=== PATIENT | female | born 1995 | race African-American/Black ===

== ENCOUNTER 2017-04-03 07:42 | Emergency (ER) | payer SELFPAY ==
[2017-04-03 07:48] VITALS: BP 134/97; BMI 31.8
[2017-04-03 08:20] LABS: BILIRUBIN,URINE NEGATIVE (NEGATIVE); BLOOD/HEMOGLOBIN,URINE 1+ (NEGATIVE); GLUCOSE, URINE NEGATIVE (NEGATIVE); KETONES,URINE NEGATIVE (NEGATIVE); LEUKOCYTE ESTERASE ,URINE 1+ (NEGATIVE); NITRITES,URINE NEGATIVE (NEGATIVE); PH,URINE 6.5 (5.0 - 8.0); PROTEIN,URINE 1+ (NEGATIVE); UROBILINOGEN,URINE NORMAL (NORMAL)
--- NOTE | 2017-04-03 08:24 | DR.GENAD ---
HPI - PCP Primary Care Physician: nfd - Complaint/Symptoms Chief Complaint Doctors Comments: Patient admits to stomach pain; sharp in character,severe, 10/10 aggravated by food. She admits to urinary frequency but negative dysuria. She denies vomiting, diarrhea or fever. Chief Complaint:: pt states" my stomach has been hurting me so bad for over a week sick on my stomach" - Source History Provided: Patient - Mode of Arrival Mode of Arrival: Ambulatory - Timing Onset of Chief Complaint: 03/26/17 PMH - PMH Past Medical History: No Past Surgical History: No - Family History History of Family Medical Conditions: No - Social History Type of Tobacco Use: Cigarettes Does any household member use tobacco: Yes Alcohol Use: None Do you use any recreational Drugs:: No Lives With: Family Lives Where: Home - infectious screening In the last 2 months have you had wt loss of >10#?: NO Have you had fever, night sweats or hemotysis?: No Have you traveled outside the country in the last 6 months?: No Isolation: Standard ROS - Review of Systems Eyes: No Symptoms Reported ENTM: No Symptoms Reported Respiratoy: No Symptoms Reported Cardiovascular: No Symptoms Reported Gastrointestinal/Abdominal: See HPI, Abdominal Pain Genitourinary: Frequency Neurological: No Symptoms Reported Musculoskeletal: No Symptoms Reported Integumentary: No Symptoms Reported Hematologic/Lymphatic: No Symptoms Reported Endocrine: No Symptoms Reported Psychiatric: No Symptoms Reported All Other Systems: Reviewed and Negative PE - Vital Signs Vitals: Temperature 97 F Pulse Rate 87 Respiratory Rate 18 Blood Pressure [Right Arm] 127/75 Blood Pressure [Left Arm] 111/72 Blood Pressure 134/97 O2 Sat by Pulse Oximetry 100 - General General Appearance: Alert, In No Apparent Distress - Head Head Exam: Normal Inspection, Atraumatic - Eyes Eye exam: Normal Appearance, PERRL, EOMI - ENT ENT Exam: Normal Exam External Ear Exam: Normal External Inspection TM/Canal Exam: Bilateral Normal Nose Exam: Normal Nose Exam, Sinus Tenderness Mouth Exam: Normal Inspection Throat Exam: Normal Inspection - Neck Neck Exam: Normal Inspection - Chest Chest Inspection: Normal Inspection - Respiratory Respiratory Exam: Normal Lung Sounds Bilat Respiratory Exam: Bilateral Clear to Auscultation - Cardiovascular Cardiovascular Exam: Regular Rate, Normal Rhythm ROR - Labs Reviewed Result Diagrams: 04/03/17 08:25 04/03/17 08:25 Laboratory: WBC 7.5 X10^3/uL (3.6-10.0) 04/03/17 08:25 RBC 4.81 X10^6/uL (3.5-5.4) 04/03/17 08:25 Hgb 15.1 g/dL (12.0-16.0) 04/03/17 08:25 Hct 43.9 % (36.0-47.0) 04/03/17 08:25 MCV 91.2 fL (80.0-100.0) 04/03/17 08:25 MCH 31.4 pg (27.0-34.0) 04/03/17 08:25 MCHC 34.4 g/dL (33.0-35.0) 04/03/17 08:25 RDW 13.4 % (11.6-16.5) 04/03/17 08:25 Plt Count 166 X10^3/uL (150.0-450.0) 04/03/17 08:25 MPV 9.9 fL (7.4-11.0) 04/03/17 08:25 Neut % 73.5 % (42.0-75.0) 04/03/17 08:25 Lymph % 19.6 % (21.0-51.0) L 04/03/17 08:25 [place] % 6.0 % (0.0-13.0) 04/03/17 08:25 Eos % 0.6 % (0.9-2.9) L 04/03/17 08:25 Baso % 0.3 % (0.2-1.0) 04/03/17 08:25 Neut # 5.6 x10^3/uL (2.2-4.8) H 04/03/17 08:25 Lymph # 1.5 X10^3/uL (1.3-2.9) 04/03/17 08:25 [place] # 0.4 x10^3/uL (0.3-0.8) 04/03/17 08:25 Eos # 0.0 x10^3/uL (0.0-0.2) 04/03/17 08:25 Baso # 0.0 X10^3/uL (0.0-0.1) 04/03/17 08:25 Absolute Nucleated RBC 0.0 /100WBC 04/03/17 08:25 Sodium 143 mmol/L (136-145) 04/03/17 08:25 Corrected Sodium 143 mmol/L (136-145) 04/03/17 08:25 Potassium 3.9 mmol/L (3.5-5.1) 04/03/17 08:25 Chloride 106 mmol/L (98-107) 04/03/17 08:25 Carbon Dioxide 31.2 mmol/L (21-32) 04/03/17 08:25 BUN 7 mg/dL (7-18) 04/03/17 08:25 Creatinine 0.86 mg/dL (0.55-1.02) 04/03/17 08:25 Est GFR (MDRD) Af Amer > 60 (>60) 04/03/17 08:25 Est GFR (MDRD) Non-Af > 60 (>60) 04/03/17 08:25 Glucose 111 mg/dL (65-99) H 04/03/17 08:25 Calcium 8.6 mg/dL (8.5-10.1) 04/03/17 08:25 C-Reactive Protein 1.80 mg/L (0-3.0) 04/03/17 08:25 Amylase 59 Units/L (25-115) 04/03/17 08:25 Lipase 98 Units/L (73-393) 04/03/17 08:25 Specimen Type Clean catch urine 04/03/17 08:11 Urine Color Yellow (YELLOW) 04/03/17 08:11 Urine Appearance Clear (CLEAR) 04/03/17 08:11 Urine pH 6.5 (5.0 - 8.0) 04/03/17 08:11 Ur Specific [place] 1.015 (1.000-1.030) 04/03/17 08:11 Urine Protein 1+ (NEGATIVE) 04/03/17 08:11 Urine Glucose (UA) Negative (NEGATIVE) 04/03/17 08:11 Urine Ketones Negative (NEGATIVE) 04/03/17 08:11 Urine Occult Blood 1+ (NEGATIVE) 04/03/17 08:11 Urine Nitrite Negative (NEGATIVE) 04/03/17 08:11 Urine Bilirubin Negative (NEGATIVE) 04/03/17 08:11 Urine Urobilinogen Normal (NORMAL) 04/03/17 08:11 Ur Leukocyte Esterase 1+ (NEGATIVE) 04/03/17 08:11 Urine RBC None seen /HPF (NEGATIVE) 04/03/17 08:11 Urine WBC 5-10 /HPF (NEGATIVE) 04/03/17 08:11 Ur Squamous Epith Cells Moderate /HPF (NEGATIVE) 04/03/17 08:11 Urine Bacteria 1+ /HPF (NEGATIVE) 04/03/17 08:11 Ur Culture Indicated? Yes/culture set up 04/03/17 08:11 H. pylori IgG Antibody Positive (NEGATIVE) A 04/03/17 08:25 Streptococcus Screen Negative (NEGATIVE) 04/03/17 08:11 - Discharge Plan Condition: Stable - Follow ups/Referrals Follow ups/Referrals: NFD,None [Primary Care Provider] - 3 days - Instructions
[2017-04-03 08:26] LABS: COLOR,URINE YELLOW (YELLOW)
[2017-04-03 08:27] LABS: APPEARANCE,URINE CLEAR (CLEAR); BACTERIA,URINE 1+ /HPF (NEGATIVE); RBC,URINE NONE SEEN /HPF (NEGATIVE); SQUAMOUS EPITHELIAL CELL,UR MODERATE /HPF (NEGATIVE)
[2017-04-03 08:38] LABS: BASOPHILS % (AUTO) 0.3 % (0.2-1.0); EOSINOPHILS % (AUTO) 0.6 % (0.9-2.9); HEMATOCRIT 43.9 % (36.0-47.0); HEMOGLOBIN 15.1 g/dL (12.0-16.0); LYMPHOCYTES # (AUTO) 1.5 X10^3/uL (1.3-2.9); LYMPHOCYTES % (AUTO) 19.6 % (21.0-51.0); MEAN CORPUSCULAR HEMOGLOBIN 31.4 pg (27.0-34.0); MEAN CORPUSCULAR HGB CONC 34.4 g/dL (33.0-35.0); MEAN CORPUSCULAR VOLUME 91.2 fL (80.0-100.0); MEAN PLATELET VOLUME 9.9 fL (7.4-11.0); MONOCYTES # (AUTO) 0.4 x10^3/uL (0.3-0.8); NEUTROPHILS # (AUTO) 5.6 x10^3/uL (2.2-4.8); NEUTROPHILS % (AUTO) 73.5 % (42.0-75.0); PLATELET COUNT 166 X10^3/uL (150.0-450.0); RED BLOOD COUNT 4.81 X10^6/uL (3.5-5.4); RED CELL DISTRIBUTION WIDTH 13.4 % (11.6-16.5); WHITE BLOOD COUNT 7.5 X10^3/uL (3.6-10.0)
[2017-04-03 08:54] LABS: AMYLASE 59 Units/L (25-115); BLOOD UREA NITROGEN 7 mg/dL (7-18); CALCIUM 8.6 mg/dL (8.5-10.1); CARBON DIOXIDE 31.2 mmol/L (21-32); CHLORIDE 106 mmol/L (98-107); COR NA(FOR HYPERGLY) 143 mmol/L (136-145); CREATININE 0.86 mg/dL (0.55-1.02); LIPASE 98 Units/L (73-393); SODIUM 143 mmol/L (136-145); eGFR BLACK RACES > 60 (>60); eGFR NON BLACK RACES > 60 (>60)
== END 2017-04-03 09:16 | disposition home or self-care (01) ==
LOC: ER 08:03
DX: N30.01 Acute cystitis with hematuria (principal); B96.81 Helicobacter pylori [H. pylori] as the cause of diseases classified elsewhere
CPT/HCPCS: 36415; 80048; 81001; 82150; 83690; 85025; 86140; 86677; 87070; 87086; 87880; 99282